=== PATIENT | male | born 1965 | race Caucasian/White ===

== ENCOUNTER → 2020-01-03 13:14 | Outpatient (CLI) | payer OTHER, SELFPAY ==
--- NOTE | ~2020-01-03 | US_ITS ---
EXAMINATION: US scrotum doppler EXAM DATE: 01/03/2020 13:56 INDICATION: N50.89 - Other specified disorders of the male genital organs. Enlarged left testicle for couple of weeks. TECHNIQUE: Multiple grayscale and Doppler images of the testicles and scrotum were obtained bilateral ly. There is no prior study for comparison. FINDINGS: Right testicle measures 3.9 x 2.7 x 2.7 cm and is morphologically normal. Low resistance Doppler angel w confirmed. There is epididymal cyst measuring 1.1 cm. There is moderate hydrocele. Left testicle measures 5.1 x 3.1 x 2.7 cm and is morphologically normal. Low resistance Doppler flow confirmed. The epididymis is unremarkable. There is large hydrocele. IMPRESSION: 1. Bilateral hydroceles, large on left and moderate on right. Reviewed, dictated and finalized at location B. NT ADMINISTRATOR
== END ==
PROVIDERS: PCP Family Medicine; Visit Provider Family Medicine
DX: N50.89 Other specified disorders of the male genital organs (principal); N43.3 Hydrocele, unspecified
CPT/HCPCS: 76870; 93976

== ENCOUNTER 2022-10-15 07:04 | Day surgery (SDC) | payer OTHER, SELFPAY ==
[2022-10-07 13:35] VITALS: BMI 35.4
[2022-10-09 11:22] VITALS: BMI 35.6
[2022-10-15 07:34] VITALS: BP 158/97; PULSE 73; RESP 14; TEMP 36.6; O2SAT 97
--- NOTE | 2022-10-15 07:40 | WPDANESEPPF ---
Anes - Initial Pre Proc Eval Procedure: Operation Date: 10/15/22 08:30 Proposed Procedures p Excision 9cm Back Mass - Nasir Prajapati DO Date/Time: 10/15/22 07:40 Surgeon: Nasir Prajapati DO Pre Op Diagnosis: Back Mass Patient Data Age: 56 Gender: M Height: 1.73 m Weight: 107.1 kg Last Vital Signs Temp 36.6 C 10/15/22 07:34 Pulse 73 10/15/22 07:34 Resp 14 10/15/22 07:34 BP 158/97 H 10/15/22 07:34 Pulse Ox 97 10/15/22 07:34 O2 Del Method Room Air 10/15/22 07:34 Allergies Allergy/AdvReac Type Severity Reaction Status Date / Time tree nut Allergy Intermediate Unknown Verified 10/15/22 07:33 Home Medications Medication Instructions Recorded Confirmed Type albuterol sulfate 90 mcg/actuation 1 inh inhalation Q4H PRN shortness 11/13/21 10/15/22 Rx aerosol inhaler of breath or wheezing #6.7 grams metoprolol succinate 25 mg 25 mg PO DAILY #90 tabs 09/25/22 10/15/22 Rx tablet,extended release 24 hr montelukast 10 mg tablet 10 mg PO PRN PRN Allergic Symptoms 10/09/22 10/15/22 History (Singulair) Patient hx anesthesia problems: none Family hx anesthesia problems: none Results Review: All pre-operative results and documents have been reviewed as part of the pre-operative evaluation. [facility] Past Medical History Medical History Essential (primary) hypertension History of COVID-19 03/2020 Hyperlipidemia Prediabetes Seasonal asthma Vitamin D deficiency Surgical History Surgical History History of arthroscopy of both knees Meniscus repair - Right 2014, Left 2016 History of bilateral knee arthroplasty History of hand surgery 1980s - ORIF of Left 4th finger distal phalanx fracture. History of hydrocelectomy 03/2020 Family History Family History Mother Hyperlipidemia LDL goal <100 Father Hyperlipidemia LDL goal <100 Hypertension Macular degeneration Grandparent No problems noted. Sibling Testicular cancer Social History Social History Social History: 2 cups of cola Smoking status: Never smoker Second hand tobacco smoke exposure: No Alcohol intake: current Drinks per week: 0 Substance use: never Substance use type: does not use Lack of Transportation: No Lack of Food: Never True Current Housing: I Have Housing Concerned About Future Housing: No Difficulty Paying Gas/Electric Bills: No Difficulty Paying for Meds: No Currently Unemployed: No Education: Bachelor's Degree Difficulty w/ Childcare or Family Care: No Living arrangements: with family Occupation/Education: occupation Gender identity (if verbalized by the patient): Male Sexual Orientation (if Verbalized by the Patient): Straight or Heterosexual Spiritual care concerns: No Agree to blood products: Yes Anes - Eval Final PreProcedure Day of Procedure 10/15/22 07:40 Patient weight: obese Heart: regular rate and rhythm Lungs: clear to auscultation Airway: Mallampati scale class II Neurological: alert and oriented Last oral intake: >/= 8 hours ASA classification: III Emergent: no Anesthetic plan: proceed Anesthesia type and monitoring: general GIVS and standard monitoring Results Review: All pre-operative results and documents have been reviewed as part of the pre-operative evaluation. Informed Consent: The patient's anesthetic plan and its attendant risks and benefits were discussed with the patient/family/POA. Questions were solicited and answers provided to the satisfaction of the patient/family/POA.
[2022-10-15] MEDS: LACTATED RINGERS 1,000 ML 30 ML IV CONT (07:44)
--- NOTE | 2022-10-15 08:04 | WPDHPUPDATE1 ---
History and Physical Update Update Date/Time: 10/15/22 08:04 History and Physical has been reviewed, including an updated exam of the patient. There are NO changes in the patient's condition. Risks, benefits, and alternatives have been discussed and questions answered. Patient agrees to proceed with procedure.
[2022-10-15] MEDS: ceFAZolin SODIUM 2 GM/20 ML SW SYRINGE IV PUSH (08:11)
[2022-10-15] MEDS: BACITRACIN ZINC OINTMENT 0.9 GRAM PACKET 1 PACKET TOPICAL (08:48)
--- NOTE | 2022-10-15 08:48 | W.PM.PROC2 ---
Procedure Note - Detailed Date of Procedure 10/15/22 Pre-op Diagnosis Back Mass Post-op Diagnosis Same ( 9 cm back mass consistent with lipoma) Procedure Performed excision of 9 cm left mid back mass Surgeon Nasir Prajapati, DO Anesthesia MAC and Local ( 1% lidocaine with epinephrine) Indications this is a 56-year-old man who presented with a back mass that has become progressively larger over time. He has some occasional discomfort when leaning up against this area. He was found to have a large 9 cm subcutaneous back mass that appeared consistent with a lipoma. Discussions were made with the patient about treatment options and decision was made to proceed with excision of 9 cm back mass. Findings Excision of 9 cm left mid back mass was performed. The mass appeared to have consistency of a lipoma and was within the subcutaneous space. No other surrounding abnormalities were noted. The mass was completely excised and sent to the lab for pathology. Description of Procedure Procedure as well as risks, benefits, and alternatives were discussed with the patient. Written consent was obtained and placed in chart prior to procedure. Patient was brought back to surgical suite. He was placed in right lateral decubitus position on the operating table. Time-out was done to confirm patient and procedure. IV sedation was then administered by the anesthesia department. His back area was prepped and draped in sterile fashion using chlorhexidine prep. 1% lidocaine with epinephrine was infiltrated locally around the back mass. An incision was made using a 15 blade scalpel directly over the back mass. Electrocautery was then used for hemostasis and for dissection through the subcutaneous tissue. The mass was encountered and carefully dissected free from its surrounding attachments using electrocautery. The mass was completely excised with electrocautery and sent to the lab for pathology. The wound bed was then inspected. Hemostasis appeared adequate no other masses were palpable. The skin edges were then reapproximated using 3-0 nylon vertical mattress interrupted sutures. Bacitracin ointment was then applied followed by 4 x 4 gauze and Medipore tape. The patient was then awakened from anesthesia and transferred to recovery. Estimated Blood Loss 5 Pathology Yes ( 9 cm back mass) Complications No immediate complications Condition Stable Disposition Same day [facility] Billing Surgery - Charge Forward: Surgery Billing
[2022-10-15] MEDS: LIDO 1%/EPINEPHRINE 1:100,000 50 ML VIAL 25 ML INFILTRATE (08:49)
[2022-10-15 08:56] VITALS: BP 131/84; PULSE 74; RESP 16; O2SAT 96
--- NOTE | 2022-10-15 09:04 | WPDANESPN ---
Anes - Prog Note Post-Op Date/Time: 10/15/22 09:04 Cardiovascular status: normal Respiratory status: normal Airway patency: baseline Mental status: baseline Post-Op hydration status: normal Vital Signs: Last Vital Signs Temp 36.6 C 10/15/22 07:34 Pulse 74 10/15/22 08:56 Resp 16 10/15/22 08:56 BP 131/84 10/15/22 08:56 Pulse Ox 96 10/15/22 08:56 O2 Del Method Room Air 10/15/22 08:56 Pain Score (VAS): 0/10 I/O: Intake & Output 10/14/22 10/15/22 10/15/22 23:59 07:59 15:59 Intake Total 500 Balance 500 Patient Feedback: Patient satisfied with anesthetic care.
[2022-10-15 09:06] VITALS: BP 115/80; PULSE 69; RESP 15; O2SAT 98
[2022-10-15 09:16] VITALS: BP 130/78; PULSE 67; RESP 16; O2SAT 98
== END 2022-10-15 09:26 | disposition home or self-care (01) ==
PROVIDERS: PCP Family Medicine; Visit Provider Surgery
PROC: (CPT 21931; principal; 2022-10-15 08:30)
DX: R22.2 Localized swelling, mass and lump, trunk (principal)
CPT/HCPCS: 21931

== ENCOUNTER 2022-10-15 08:00 | Outpatient (NON) | payer OTHER, SELFPAY | END 2022-10-15 08:01 | disposition home or self-care (01) | LOC: ANHLAB 10-16 09:04 | PROVIDERS: PCP Family Medicine; Visit Provider Surgery | DX: R22.2 Localized swelling, mass and lump, trunk (principal) | CPT/HCPCS: 88304 ==

== ENCOUNTER 2023-06-19 12:50 | Outpatient (CLI) | payer OTHER, SELFPAY ==
--- NOTE | ~2023-06-19 | CT_ITS ---
EXAMINATION: CT sinus wo con DATE: 06/19/2023 13:05 INDICATION: Chronic sinusitis TECHNIQUE: Computed tomography (CT) of the paranasal sinuses was performed without intravenous contra st. The dose-length product was 406.70 mGy-cm. Automated exposure control and iterative reconstruction technique were employed. COMPARISON: None FINDINGS: There is mucosal thickening of the maxillary, ethmoid and sphenoid sinuses. There is polypo id soft tissue in the maxillary sinuses bilaterally which may represent mucous retention cysts. There is leftward nasal septal deviation. There is a large right-sided abbie bullosa. Ostiomeatal units a re occluded by soft tissue. No mucoperiosteal reaction. Mastoids are pneumatized. IMPRESSION: 1. Moderate sinus disease. Reviewed, dictated and finalized at location B. IMPRESSION: 1. Moderate sinus disease.
== END 2023-06-19 12:51 ==
LOC: GOSHIMG 12:52
PROVIDERS: PCP Family Medicine; Visit Provider Otolaryngology
DX: J32.9 Chronic sinusitis, unspecified (principal)
CPT/HCPCS: 70486

== ENCOUNTER 2023-08-18 00:15 | Day surgery (SDC) | payer OTHER, SELFPAY ==
--- NOTE | 2023-08-06 08:27 | PC.NURSE ---
Report to the Outpatient Waiting Room, entrance under the green pavilion located off [facility], at time _0630 on date __08/18/23 . Planned Procedure Time: . Time changes happen often and if your time is changed the preop area will call you the afternoon before. - You and your visitor will be asked to self-screen and do not enter if you have any COVID symptoms. - A mask is optional within the hospital at this time. Patients may have clear liquids (water, carbonated beverages, clear teas, apple juice) until 3 hours prior to surgery with a maximum of 20 ounces. - No food from midnight until time of surgery - Infants may have breast milk until 4 hours before surgery, infant formula 6 hours prior to surgery. - Children will be allowed to drink immediately following surgery. If applicable, please bring a bottle or sippy cup to assist with drinking. Juice, water, soda, and popsicles are readily available. For infants on formula, please bring formula the day of surgery. Pacifiers are allowed. Take the following medications with a SIP of water the morning of surgery: __Metoprolol and 2 inhalers DO NOT STOP ANY OF YOUR OTHER PRESCRIPTION MEDICATIONS PRIOR TO SURGERY ?EXCEPT THE FOLLOWING Medications to discontinue per physician _Vitamins and supplements Date to take last dose__3 days prior Please no make-up, nail slovak, hairspray, perfume, deodorant, or body powder the day of surgery. No jewelry (including any body piercings) or valuables the day of surgery, leave them at home. Please take a shower or bath the night before, or the morning of, surgery with an antibacterial soap. Wear comfortable, loose fitting clothing. Children are encouraged to wear pajamas. - Jewelry must be removed prior to entering the operating room. Rings and piercings that are not removed may be cut off. - The hospital will not accept responsibility for valuables. - Please leave all valuables, including medications, at home the day of surgery. If you are going home after surgery, a licensed seasonal driver must drive you home. - NO public transportation without another adult if you receive anesthesia. - We recommend that an adult stay with you for 24 hours following discharge. - We also recommend that you do not drive, make important decision, drink alcoholic beverages, or take any drugs that were not prescribed by your health care provider for at least 24 hours after your discharge time. For Pediatric surgeries, we recommend two adults accompany the child home. Follow any additional instructions given to you from your surgeon. If you or anyone in your household have experienced Covid symptoms in the past week, please notify your surgeon or the nurse liaison at the phone number below for possible testing. Telephone instructions given to __Johan and asked if any additional questions and then verbalized understanding. Patient advised to call surgeon office or pre surgery nurse liaison [phone] if any additional questions.
--- NOTE | 2023-08-17 16:51 | PM.IMHP ---
H&P: HPI History of Present Illness Date/Time: 08/17/23 16:51 Chief Complaint: septal Deviation turbinate hypertrophy chronic sinusitis nasal obstruction Narrative: planned procedure Review of Systems Review of Systems: All systems reviewed & are unremarkable except as noted in HPI and below [facility] Past Medical History Medical History Essential (primary) hypertension History of COVID-19 03/2020 Hyperlipidemia Prediabetes Seasonal asthma Vitamin D deficiency Surgical History Surgical History History of arthroscopy of both knees Meniscus repair - Right 2014, Left 2016 History of bilateral knee arthroplasty History of hand surgery 1980s - ORIF of Left 4th finger distal phalanx fracture. History of hydrocelectomy 03/2020 Previous back surgery excision of 9 cm left mid back mass on 10/15/22 [facility] Family History Family History Mother Hyperlipidemia LDL goal <100 Father Hyperlipidemia LDL goal <100 Hypertension Macular degeneration Grandparent No problems noted. Sibling Testicular cancer Social History Social History Social History: 2 cups of cola Smoking status: Never smoker Second hand tobacco smoke exposure: No Alcohol intake: current Drinks per week: 1 Substance use: never Substance use type: does not use Lack of Transportation: No Lack of Food: Never True Current Housing: I Have Housing Concerned About Future Housing: No Difficulty Paying Gas/Electric Bills: No Difficulty Paying for Meds: No Currently Unemployed: No Education: Bachelor's Degree Difficulty w/ Childcare or Family Care: No Living arrangements: with family Occupation/Education: occupation Gender identity (if verbalized by the patient): Male Sexual Orientation (if Verbalized by the Patient): Straight or Heterosexual Spiritual care concerns: No Agree to blood products: Yes Meds Home Medications and Allergies Home Medications Medication Instructions Recorded Confirmed Type albuterol sulfate 90 mcg/actuation 1 inh inhalation Q4H PRN shortness 12/30/22 08/06/23 Rx aerosol inhaler of breath or wheezing #6.7 grams metoprolol succinate 25 mg 25 mg PO DAILY #90 tabs 03/24/23 08/06/23 Rx tablet,extended release 24 hr cholecalciferol (vitamin D3) 25 25 mcg PO DAILY 08/06/23 08/06/23 History mcg (1,000 unit) capsule (Vitamin D3) fluticasone 100 mcg-salmeterol 50 1 inh inhalation BID PRN Asthma 08/06/23 08/06/23 History mcg/dose blistr powdr for inhalation (Advair Diskus) magnesium 1 tablet PO DAILY 08/06/23 08/06/23 History montelukast 10 mg tablet 10 mg PO DAILY 08/06/23 08/06/23 History Allergies Allergy/AdvReac Type Severity Reaction Status Date / Time tree nut Allergy Intermediate Unknown Verified 08/06/23 08:11 Exam Narrative: septal deviation turbinate hypertrophy chronic appearing sinuses Assessment and Plan Assessment and plan (1) Chronic sinusitis: Code(s): J32.9 - Chronic sinusitis, unspecified Status: Acute Assessment and Plan: plan OR bilateral image guided endoscopic maxillary antrostomies total ethmoidectomies septoplasty endoscopic assisted inferior turbinate reduction with outfracture bilaterally. Risks discussed bleeding infection damage to surrounding structures has of the brain different damage change in vision or blindness septal perforation failure to resolve symptoms time off work time off school inherent risk of narcotic use. Damage any structures the clavicle by myself damage to structure induction remains anesthesia including vocal cord paralysis. Add on a there resection of abbie bullosa (2) Hypertrophy of both inferior nasal turbinates: Code(s): J34.3
[2023-08-18] VITALS (8 sets, daily range): BP systolic 113–140; BP diastolic 70–80; PULSE 58–77; RESP 12–16; TEMP 36.1–36.2; O2SAT 94–98
--- NOTE | 2023-08-18 07:06 | WPDANESEPPF ---
Anes - Initial Pre Proc Eval Procedure: Operation Date: 08/18/23 08:30 Proposed Procedures p Image Guided BIlateral Inferior Turbinate Reduction with Outfracture, Right Sided Resection Courtney Bullosa, Bilateral Maxillary Antrostomy, Bilateral Total Ethmoidectomy - Nathan Pak MD s Endoscopic Assisted Septoplasty - Nathan Pak MD Date/Time: 08/18/23 07:06 Surgeon: Nathan Pak MD Pre Op Diagnosis: Chr Sinusitis Septal Dev, Courtney Bullosas Patient Data Age: 57 Gender: M Height: Weight: 99.79 kg Last Vital Signs O2 Del Method Room Air 08/06/23 08:26 Allergies Allergy/AdvReac Type Severity Reaction Status Date / Time tree nut Allergy Intermediate Unknown Verified 08/06/23 08:11 Home Medications Medication Instructions Recorded Confirmed Type albuterol sulfate 90 mcg/actuation 1 inh inhalation Q4H PRN shortness 12/30/22 08/06/23 Rx aerosol inhaler of breath or wheezing #6.7 grams metoprolol succinate 25 mg 25 mg PO DAILY #90 tabs 03/24/23 08/06/23 Rx tablet,extended release 24 hr cholecalciferol (vitamin D3) 25 25 mcg PO DAILY 08/06/23 08/06/23 History mcg (1,000 unit) capsule (Vitamin D3) fluticasone 100 mcg-salmeterol 50 1 inh inhalation BID PRN Asthma 08/06/23 08/06/23 History mcg/dose blistr powdr for inhalation (Advair Diskus) magnesium 1 tablet PO DAILY 08/06/23 08/06/23 History montelukast 10 mg tablet 10 mg PO DAILY 08/06/23 08/06/23 History Patient hx anesthesia problems: none Family hx anesthesia problems: none Results Review: All pre-operative results and documents have been reviewed as part of the pre-operative evaluation. [facility] Past Medical History Medical History Essential (primary) hypertension History of COVID-19 03/2020 Hyperlipidemia Prediabetes Seasonal asthma Vitamin D deficiency Surgical History Surgical History History of arthroscopy of both knees Meniscus repair - Right 2014, Left 2016 History of bilateral knee arthroplasty History of hand surgery 1980s - ORIF of Left 4th finger distal phalanx fracture. History of hydrocelectomy 03/2020 Previous back surgery excision of 9 cm left mid back mass on 10/15/22 [facility] Family History Family History Mother Hyperlipidemia LDL goal <100 Father Hyperlipidemia LDL goal <100 Hypertension Macular degeneration Grandparent No problems noted. Sibling Testicular cancer Social History Social History Social History: 2 cups of cola Smoking status: Never smoker Second hand tobacco smoke exposure: No Alcohol intake: current Drinks per week: 1 Substance use: never Substance use type: does not use Lack of Transportation: No Lack of Food: Never True Current Housing: I Have Housing Concerned About Future Housing: No Difficulty Paying Gas/Electric Bills: No Difficulty Paying for Meds: No Currently Unemployed: No Education: Bachelor's Degree Difficulty w/ Childcare or Family Care: No Living arrangements: with family Occupation/Education: occupation Gender identity (if verbalized by the patient): Male Sexual Orientation (if Verbalized by the Patient): Straight or Heterosexual Spiritual care concerns: No Agree to blood products: Yes Anes - Eval Final PreProcedure Day of Procedure 08/18/23 07:06 Patient weight: overweight Heart: regular rate and rhythm Lungs: clear to auscultation Airway: Mallampati scale class II Neurological: alert and oriented Last oral intake: >/= 8 hours ASA classification: II Emergent: no Anesthetic plan: proceed Anesthesia type and monitoring: general ETT and standard monitoring Results Review: All pre-operative results and documents have been reviewed as part of the pre-operative evaluation. Informed
[2023-08-18] MEDS: ACETAMINOPHEN 500 MG TABLET 1000 MG PO (07:34)
[2023-08-18] MEDS: LACTATED RINGERS 1,000 ML 30 ML IV CONT ×2 (07:34→10:49)
--- NOTE | 2023-08-18 07:54 | WPDHPUPDATE1 ---
History and Physical Update Update Date/Time: 08/18/23 07:54 History and Physical has been reviewed, including an updated exam of the patient. There are NO changes in the patient's condition. Risks, benefits, and alternatives have been discussed and questions answered. Patient agrees to proceed with procedure.
--- NOTE | 2023-08-18 08:21 | WPDHPUPDATE1 ---
History and Physical Update Update Date/Time: 08/18/23 08:21 History and Physical has been reviewed, including an updated exam of the patient. There are NO changes in the patient's condition. Risks, benefits, and alternatives have been discussed and questions answered. Patient agrees to proceed with procedure. Add right sided abbie bullosa resection
[2023-08-18] MEDS: ceFAZolin 2 GM/D5W 50 ML 2 GM/50 ML BAG IVPB (08:26)
[2023-08-18] MEDS: LIDO 1%/EPINEPHRINE 1:100,000 20 ML VIAL 10 ML INFILTRATE (08:38)
[2023-08-18] MEDS: OXYMETAZOLINE HCL 0.05% NAS 15 ML BTL (*BKC) 1 SPRAY NASAL (08:40)
[2023-08-18] MEDS: MUPIROCIN 2% OINT 22 GM TUBE 1 APPLIC EACH NARE (10:13)
--- NOTE | 2023-08-18 11:09 | W.PM.PROC2 ---
Procedure Note - Detailed Date of Procedure 08/18/23 Pre-op Diagnosis Chr Sinusitis, Septal Dev, Abbie Bullosas,Nasal polyps, inferior turbinate hypertrophy Post-op Diagnosis Same Procedure Performed bilateral image guided endoscopic maxillary antrostomies total ethmoidectomies. Right-sided abbie bullosa resection. Endoscopic assisted septoplasty. Inferior turbinate reduction with outfracture. Left middle turbinectomy. Surgeon Nathan Pak MD Anesthesia General Indications See above Findings nasal polyps in all the aforementioned sinuses severely diseased left nonviable appearing middle turbinate right severely enlarged abbie bullosa severe left septal deviation large turbinates. Description of Procedure Patient identified consent verified preop. Patient brought to the operating. Time-out performed. General anesthesia induced endotracheal tube secured. Patient prepped draped position procedure confirmed 2nd time-out performed. Image guidance initiated confirmed. Afrin-soaked pledgets placed for 5 minutes then removed removed. 15 cc 1% lidocaine 1 100,000 parts epinephrine injected in the bilateral nasal septum inferior turbinates and bilateral middle turbinates. Right abbie bullosa resected with sickle blade and straight through cut. And microdebrider. Right middle turbinate much more mobile. [place] incision made left side left nasal septal flap elevated some tears over the spurs. Osteotome utilized to cross over right nasal septal flap elevated. Deviated septum removed with Erinn forceps Luis [place] forceps and osteotome. Septum irrigated closed anteriorly using 3 interrupted 5 0 fast gut sutures. Inferior turbinates reduced in a submucosal plane with Creoptix 2.5 mm microdebrider after stab incision 15 blade. Then outfractured Emery elevator. Maxillary antrostomies performed bilaterally with image guidance straight through cut double ball tip probe and backbiter. No damage to orbit. Total ethmoidectomy performed with image guidance [place] microdebrider straight through cut. No damage to orbit no damage to skull base no damage to septum. Wound copiously irrigated out. Left middle turbinate was nonviable appearing floppy kept going over the lateral lateral nasal wall. This was resected with straight through cut stump cauterized Bovie suction electrocautery setting of 15. [place] tip left inferior turbinate also cauterized Bovie suction electrocautery setting of 15. Total blood loss 75 cc. Doll splints were placed ensured to be in appropriate position sutured anteriorly using a 3-0 mattress nylon suture. No complications bilateral nasal passages were copiously irrigated out Nova pack placed bilaterally. I performed all dictated portions of procedure care the patient given Anesthesiology. Patient taken to PACU. Estimated Blood Loss 75 Drains No Packing Yes (Jaspreetapak) Pathology None sent Complications No immediate complications Condition Stable Disposition PACU [facility] Billing Surgery - Charge Forward: Surgery Billing
== END 2023-08-18 12:34 | disposition home or self-care (01) ==
PROVIDERS: PCP Family Medicine; Visit Provider Otolaryngology
PROC: (CPT 31256; principal; 2023-08-18 08:30)
PROC: (CPT 30520; 2023-08-18 08:30)
DX: J32.9 Chronic sinusitis, unspecified (principal); J34.3 Hypertrophy of nasal turbinates; J34.89 Other specified disorders of nose and nasal sinuses; J34.2 Deviated nasal septum; J33.9 Nasal polyp, unspecified; J33.8 Other polyp of sinus; Z79.51 Long term (current) use of inhaled steroids; I10 Essential (primary) hypertension; E78.5 Hyperlipidemia, unspecified; E55.9 Vitamin D deficiency, unspecified; R73.03 Prediabetes
CPT/HCPCS: 31256; 31255; 61782; 31240; 30520; 30140; A9270; J0690; J1100; J1170; J1596; J2250; J2405; J3010; J7120

== ENCOUNTER 2023-12-01 09:27 | Outpatient (CLI) | payer OTHER, SELFPAY ==
--- NOTE | ~2023-12-01 | US_ITS ---
EXAMINATION: US art doppler w press LE BI DATE: 12/01/2023 10:30 INDICATION: Right lower limb pain with claudication TECHNIQUE: Segmental pressures and plethysmographic and Doppler waveforms of the brachial and lower e xtremity arteries were obtained. COMPARISON: None. FINDINGS: Right and left brachial artery pressures of 122 mm Hg and 138 mm Hg, respectively, are concordant (no rmal difference <= 30 mmHg). The right and left high-thigh pressure indices are 1.33 and 1.17, respec tively (normal > 1.2). The right ankle-brachial index (SHELBY) is 1.11 (normal >= 0.9-1). The right great toe-brachial index (T BI) is 0.80 (normal >= 0.6-0.8). The right lower extremity segmental pressure gradients are normal (n ormal gradients <= 20-30 mmHg between adjacent levels on the same leg or the same levels on the two l egs). Arterial waveforms are triphasic at the right common femoral, superficial femoral and popliteal arteries and biphasic at the right posterior tibial and dorsalis pedis arteries, each with brisk sys tolic upstrokes. The left SHELBY is 0.99. The left TBI is 0.70. The left lower extremity segmental pressure gradients are normal. Arterial waveforms are triphasic at the left common femoral and superficial femoral arteries and dorsalis pedis artery and biphasic at the left popliteal and posterior tibial arteries with bris k systolic upstrokes throughout. IMPRESSION: 1. Normal SHELBY's and TBI's bilaterally. No significant occlusive disease. Reviewed, dictated and finalized at location A.
== END 2023-12-01 09:28 | disposition home or self-care (01) ==
PROVIDERS: PCP Family Medicine; Visit Provider Family Medicine
DX: M79.604 Pain in right leg (principal); M79.605 Pain in left leg; I73.9 Peripheral vascular disease, unspecified
CPT/HCPCS: 93923

== ENCOUNTER 2024-01-05 07:27 | Outpatient (CLI) | payer OTHER, SELFPAY ==
--- NOTE | ~2024-01-05 | US_ITS ---
EXAMINATION: US soft tissue head and neck DATE: 01/05/2024 07:43 INDICATION: Other diseases of salivary glands. TECHNIQUE: Multiple grayscale and Doppler ultrasound images of the head and neck were obtained. COMPARISON: CT sinuses 06/19/2023 FINDINGS: There is a normal lymph node in the right parotid gland. There is a normal superficial lymp h node near the right parotid gland. IMPRESSION: 1. No abnormal mass or lymphadenopathy. Reviewed, dictated and finalized at location A. 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
== END 2024-01-05 07:28 | disposition home or self-care (01) ==
LOC: MICIMG 07:28
PROVIDERS: PCP Family Medicine; Visit Provider Otolaryngology
DX: K11.8 Other diseases of salivary glands (principal)
CPT/HCPCS: 76536

== ENCOUNTER 2024-11-28 06:39 | Day surgery (SDC) | payer OTHER, SELFPAY ==
[2024-10-03 10:11] VITALS: BMI 36.6
--- OUTSIDE RECORDS SUMMARY | 2024-11-28 06:57 | XMS_ITS | Clinical Summary ---
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 Gender Identity Not on file Sexual Orientation Not on file Plan of Treatment Health Maintenance Due Date Last Done Comments Hepatitis C Virus (HCV) Screening 1965 TdaP Immunization 1965 Cologuard 11/12/2008 Colonoscopy 11/12/2008 Colorectal Cancer Screening 11/12/2008 Immunochemical Fecal Occult Blood 11/12/2008 Pneumococcal Immunization (5 0+ years) (1 of 1 - PCV) 11/12/2013 Zoster Immunization (1 of 2) 11/12/2013 SARS-COV-2 Immunization (1 - 2023- season) 2023 Influenza Immunization (#1) 2024 Respiratory Syncytial Virus (RSV) Immunization (Adult) (1 - 1-dose 75+ series) 11/12/2038 Hepatitis B Immunization Aged Out No longer eligible based on patient's age to complete this topic Human Papillomavirus (HPV) Immunization Aged Out No longer eligible b ased on patient's age to complete this topic Meningococcal Immunization (ACWY) Aged Out No longer eligible based on patient's age to complete this topic Rotavirus Immunization Aged Out No lo nger eligible based on patient's age to complete this topic
[2024-11-28 07:14] VITALS: BP 152/92; PULSE 69; RESP 18; TEMP 36.8; O2SAT 98
[2024-11-28] MEDS: LACTATED RINGERS 1,000 ML 150 ML IV CONT (07:25)
--- NOTE | 2024-11-28 08:00 | WPDANESEPPF ---
Anes - Initial Pre Proc Eval Procedure: Operation Date: 11/28/24 08:30 Proposed Procedures p Screening Colonoscopy - Nasir Prajapati DO Date/Time: 11/28/24 08:00 Surgeon: Nasir Prajapati DO Pre Op Diagnosis: Neoplasm Screening Patient Data Age: 59 Gender: M Height: 1.73 m Weight: 108.95 kg Last Vital Signs Temp 98.2 F 11/28/24 07:14 Pulse 69 11/28/24 07:14 Resp 18 11/28/24 07:14 BP 152/92 H 11/28/24 07:14 Pulse Ox 98 11/28/24 07:14 O2 Del Method Room Air 11/28/24 07:14 Allergies Allergy/AdvReac Type Severity Reaction Status Date / Time tree nut Allergy Intermediate Swelling Verified 11/28/24 07:12 of Lip/Tongue/Throat Home Medications ?Medication ?Instructions ?Recorded ?Confirmed ?Type albuterol sulfate 90 mcg/actuation 1 inh inhalation Q4H PRN shortness 12/30/22 11/28/24 Rx aerosol inhaler of breath or wheezing #6.7 grams cholecalciferol (vitamin D3) 25 25 mcg PO DAILY 08/06/23 11/28/24 History mcg (1,000 unit) capsule (Vitamin D3) fluticasone 100 mcg-salmeterol 50 1 inh inhalation BID PRN Asthma 08/06/23 11/28/24 History mcg/dose blistr powdr for inhalation (Advair Diskus) montelukast 10 mg tablet 10 mg PO DAILY #90 tabs 09/30/23 11/28/24 Rx metoprolol succinate 25 mg 25 mg PO DAILY #90 tabs 09/22/24 11/28/24 Rx tablet,extended release 24 hr vitamins A,C,M-oadr-irmeis 2,148 2 tablet PO DAILY 11/16/24 11/28/24 History mcg-113 mg-45 mg-17.4 mg tablet (Eye Multivitamin) Patient hx anesthesia problems: none Family hx anesthesia problems: none Results Review: All pre-operative results and documents have been reviewed as part of the pre-operative evaluation. [facility] Past Medical History Medical History Prediabetes Seasonal asthma Hyperlipidemia History of COVID-19 03/2020 Vitamin D deficiency Essential (primary) hypertension Surgical History Surgical History History of nasal surgery (~08/2023) bilateral image guided endoscopic maxillary antrostomies total ethmoidectomies. Right-sided abbie bullosa resection. Endoscopic assisted septoplasty. Inferior turbinate reduction with outfracture. Left middle turbinectomy. Previous back surgery (~09/2022) excision of 9 cm lipoma left mid back mass on 10/15/22 [facility] History of hand surgery 1980s - ORIF of Left 4th finger distal phalanx fracture. History of arthroscopy of both knees Meniscus repair - Right 2014, Left 2017 History of hydrocelectomy 03/2020 Family History Family History Mother Hyperlipidemia LDL goal <100 Father Hyperlipidemia LDL goal <100 Hypertension Macular degeneration Grandparent No problems noted. Sibling Testicular cancer Social History Social History Social History: Caffeine-soda Smoking status: Never smoker Second hand tobacco smoke exposure: No Alcohol use details: ocassionally Substance use: never Substance use type: does not use Do You Feel Safe in your Home?: Yes Lack of Transportation: No Lack of Food: Never True Current Housing: I Have Housing Concerned About Future Housing: No Difficulty Paying Gas/Electric Bills: No Difficulty Paying for Meds: No Currently Unemployed: No Education: Bachelor's Degree Difficulty w/ Childcare or Family Care: No Living arrangements: with family Occupation/Education: occupation Gender identity (if verbalized by the patient): Male Sexual Orientation (if Verbalized by the Patient): Straight or Heterosexual Spiritual care concerns: No Agree to blood products: Yes Anes - Eval Final PreProcedure Day of Procedure 11/28/24 08:00 Heart: regular rate and rhythm Lungs: clear to auscultation Airway: Mallampati scale class II Neurological: alert and oriented Last oral intake: >/= 8 hours ASA classification: II Anesthetic plan: proceed Anesthesia type and monitoring: monitored anesthesia care Results Review: All pre-operative results and documents have been reviewed as part of the pre-operative evaluation. Informed Consent: The patient's anesthetic plan and its attendant risks and benefits were discussed with the patient/family/POA. Questions were solicited and answers provided to the satisfaction of the patient/family/POA.
--- NOTE | 2024-11-28 08:20 | PM.IMHP ---
H&P: HPI History of Present Illness Date/Time: 11/28/24 08:20 Chief Complaint: screening for colorectal cancer Narrative: this is a 59-year-old man who presents for his 1st colonoscopy. He has duct Cologuard is a the past which have all been negative. He denies any hematochezia or melena. He denies family history of colon cancer. Review of Systems Review of Systems: All systems reviewed & are unremarkable except as noted in HPI and below Constitutional: Constitutional: Denies chills, Denies fever(s), Denies headache(s) and Denies weight loss Eyes: Eyes: Denies change in vision ENT: Denies dizziness, Denies headache(s), Denies neck mass and Denies throat swelling Cardiovascular: Cardiovascular: Denies chest pain, Denies lightheadedness and Denies dyspnea Respiratory: Respiratory: Denies cough, Denies dyspnea and Denies wheezing Gastrointestinal: Gastrointestinal: Denies abdominal pain, Denies change in bowel habits, Denies nausea and Denies vomiting Genitourinary: Genitourinary: Denies hematuria and Denies dysuria Musculoskeletal: Musculoskeletal: Reports as per HPI Integumentary/Breasts: Skin/Breast: Reports as per HPI Neurologic: Denies dizziness and Denies headache(s) Allergic/Immunologic: Allergic/Immunologic: Denies throat swelling and Denies wheezing PMFSH Past Medical History Medical History Prediabetes Seasonal asthma Hyperlipidemia History of COVID-19 03/2020 Vitamin D deficiency Essential (primary) hypertension Surgical History Surgical History History of nasal surgery (~08/2023) bilateral image guided endoscopic maxillary antrostomies total ethmoidectomies. Right-sided abbie bullosa resection. Endoscopic assisted septoplasty. Inferior turbinate reduction with outfracture. Left middle turbinectomy. Previous back surgery (~09/2022) excision of 9 cm lipoma left mid back mass on 10/15/22 [facility] History of hand surgery 1980s - ORIF of Left 4th finger distal phalanx fracture. History of arthroscopy of both knees Meniscus repair - Right 2014, Left 2016 History of hydrocelectomy 03/2020 Family History Family History Mother Hyperlipidemia LDL goal <100 Father Hyperlipidemia LDL goal <100 Hypertension Macular degeneration Grandparent No problems noted. Sibling Testicular cancer Social History Social History Social History: Caffeine-soda Smoking status: Never smoker Second hand tobacco smoke exposure: No Alcohol use details: ocassionally Substance use: never Substance use type: does not use Do You Feel Safe in your Home?: Yes Lack of Transportation: No Lack of Food: Never True Current Housing: I Have Housing Concerned About Future Housing: No Difficulty Paying Gas/Electric Bills: No Difficulty Paying for Meds: No Currently Unemployed: No Education: Bachelor's Degree Difficulty w/ Childcare or Family Care: No Living arrangements: with family Occupation/Education: occupation Gender identity (if verbalized by the patient): Male Sexual Orientation (if Verbalized by the Patient): Straight or Heterosexual Spiritual care concerns: No Agree to blood products: Yes Meds Home Medications and Allergies Home Medications ?Medication ?Instructions ?Recorded ?Confirmed ?Type albuterol sulfate 90 mcg/actuation 1 inh inhalation Q4H PRN shortness 12/30/22 11/28/24 Rx aerosol inhaler of breath or wheezing #6.7 grams cholecalciferol (vitamin D3) 25 25 mcg PO DAILY 08/06/23 11/28/24 History mcg (1,000 unit) capsule (Vitamin D3) fluticasone 100 mcg-salmeterol 50 1 inh inhalation BID PRN Asthma 08/06/23 11/28/24 History mcg/dose blistr powdr for inhalation (Advair Diskus) montelukast 10 mg tablet 10 mg PO DAILY #90 tabs 09/30/23 11/28/24 Rx metoprolol succinate 25 mg 25 mg PO DAILY #90 tabs 09/22/24 11/28/24 Rx tablet,extended release 24 hr vitamins A,C,I-rhtw-lufcfc 2,148 2 tablet PO DAILY 11/16/24 11/28/24 History mcg-113 mg-45 mg-17.4 mg tablet (Eye Multivitamin) Allergies Allergy/AdvReac Type Severity Reaction Status Date / Time tree nut Allergy Intermediate Swelling Verified 11/28/24 07:12 of Lip/Tongue/Throat Vital Signs Vital Signs - 24 hr 11/28/24 07:14 Temperature 98.2 F Pulse Rate 69 Respiratory Rate 18 Blood Pressure 152/92 H Pulse Oximetry 98 Oxygen Delivery Room Air Exam Const: General: no acute distress and alert Orientation/consciousness: patient oriented x3 HENMT: Head: normocephalic and atraumatic Ears: hearing grossly normal bilaterally Face/Nose/Sinus: Normal nares present Mouth: Yes Normal oral and palatal mucosa present Eyes: Periorbital: periorbital findings normal Sclera: sclerae normal EOM: EOMs intact bilaterally Neck: Neck: normal visual inspection, no lymphadenopathy and trachea midline Chest: Chest palpation & inspection: normal inspection of the chest Resp: Effort & Inspection: normal respiratory effort Auscultation: clear to auscultation bilaterally Cardio: Jugular venous distension: no JVD Rate: regular rate Rhythm: regular rhythm Heart sounds: S1 normal heart sound present and S2 normal heart sound present Peripheral pulses: Peripheral pulses 2+ throughout GI: Inspection: normal to inspection GI Palp: Yes Soft to palpation, No Tenderness to palpation present (GI), No Guarding due to palpation present (GI) and No Rebound tenderness present Percussion: Yes normal to percussion Auscultation: normal bowel sounds : General: Yes no CVA tenderness Back/Spine/Pelvis: Back: no CVA tenderness Neuro: General: patient oriented x3, no focal motor deficits and CN's II-XI intact bilaterally Cognition (Neuro): normal cognition Speech: normal speech Motor exam (neuro): 5/5 motor strength present throughout Extrem: General: capillary refill normal and no clubbing, cyanosis or edema Assessment and Plan Assessment and plan (1) Screening for colorectal cancer: Code(s): Z12.11 - Encounter for screening for malignant neoplasm of colon; Z12.12 - Encounter for screening for malignant neoplasm of rectum Status: Acute Assessment and Plan: I have recommended colonoscopy. I have discussed the procedure, risks, benefits, and alternatives. Questions were answered. Patient is agreeable to proceed.
--- NOTE | 2024-11-28 08:31 | WPDANESPN ---
Anes - Prog Note Post-Op Date/Time: 11/28/24 08:31 Vital Signs: Last Vital Signs Temp 98.2 F 11/28/24 07:14 Pulse 69 11/28/24 07:14 Resp 18 11/28/24 07:14 BP 152/92 H 11/28/24 07:14 Pulse Ox 98 11/28/24 07:14 O2 Del Method Room Air 11/28/24 07:14 Pain Score (VAS): no Patient Feedback: Patient satisfied with anesthetic care.
[2024-11-28 08:51] VITALS: BP 104/62; PULSE 69; RESP 14; O2SAT 95
[2024-11-28 09:01] VITALS: BP 116/77; PULSE 70; RESP 20; O2SAT 96
[2024-11-28 09:11] VITALS: BP 131/84; PULSE 69; RESP 20; O2SAT 98
== END 2024-11-28 09:14 | disposition home or self-care (01) ==
PROVIDERS: PCP Nurse Practitioner Family; Visit Provider Surgery
PROC: 0DJD8ZZ Inspection of Lower Intestinal Tract, Via Natural or Artificial Opening Endoscopic (ICD-10-PCS; CPT 45378; principal; 2024-11-28 08:30)
DX: Z12.11 Encounter for screening for malignant neoplasm of colon (principal); D12.2 Benign neoplasm of ascending colon; D12.5 Benign neoplasm of sigmoid colon; K57.30 Diverticulosis of large intestine without perforation or abscess without bleeding
CPT/HCPCS: 45380

== ENCOUNTER 2024-11-28 07:59 | Outpatient (NON) | payer OTHER, SELFPAY ==
--- NOTE | 2024-11-28 | S_PTH ---
PATIENT: Johan Menon LOC: [facility]#:[id number] AGE/SX: 59/M ROOM: RE11/28/[address]: Nasir Prajapati DO : 1965 BED: DIS: 11/28/2024 SPEC #: [id number] RECD: 11/29/24 08:15 STATUS: SOLANGE REQ #: [id number] JAREK: 11/28/24 00:[address]: Nasir Prajapati DEPT: [facility] Surgical RECD BY: Adolfo Rivera ENTERED: 11/29/24 08:16 SP TYPE: Surgical OTHR DR: Marija Wetzel APRN Tissues: A - Colon Polypectomy B - Colon Polypectomy Procedures: Hematoxylin and Eosin Stain Gross and Microscopic Level 4
--- OUTSIDE RECORDS SUMMARY | 2024-11-29 08:09 | XMS_ITS | Clinical Summary ---
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
== END 2024-11-28 08:00 | disposition home or self-care (01) ==
PROVIDERS: PCP Nurse Practitioner Family; Visit Provider Surgery
DX: Z12.11 Encounter for screening for malignant neoplasm of colon (principal)
CPT/HCPCS: 88305